=== PATIENT | female | born 1975 | race Two or more races ===

== ENCOUNTER 2024-06-03 08:37 | Outpatient (CLI) | payer OTHER ==
[2024-06-03 09:27] LABS: HEMATOCRIT 36.7 % (36.0-45.00); HEMOGLOBIN 12.1 g/dL (12.0-15.00); MEAN CELL VOLUME 79.2 fL (80.00-100.00); MEAN CORPUSCULAR HEMOGLOBIN 26.1 pg (27.00-32.0); PLATELET COUNT 253 K/uL (150-450); RED BLOOD COUNT 4.63 M/uL (4.00-6.00); RED CELL DISTRIBUTION WIDTH 14.4 % (11.5-14.5)
[2024-06-03 09:36] LABS: PH,URINE 5.5 (5.0-8.0); URINE APPEARANCE Clear; URINE BILIRRUBIN Negative (NEGATIVE); URINE BLOOD Negative; URINE COLOR Yellow; URINE GLUCOSE Negative (NEGATIVE); URINE KETONE Negative (NEGATIVE); URINE LEUKOCYTE Negative; URINE NITRATE Negative; URINE PROTEIN Negative (NEGATIVE)
[2024-06-03 09:40] LABS: URINE BACTERIA 318.7 uL (0.0-1933); URINE EPITHELIAL CELLS 18.3 uL (0.0-38.8); URINE RBC 9.7 uL (0.0-20.8); URINE WBC 3.8 uL (0.0-23.2)
[2024-06-03 10:09] LABS: ALBUMIN 3.7 gm/dL (3.4-5.0); BILIRUBIN TOTAL 0.43 mg/dL (0.3-1.2); CALCIUM 8.8 mg/dL (8.5-10.1); CHOL HDL RATIO 4.1 (0-5.0); CREATININE SERUM 0.76 mg/dL (0.55-1.02); FERRITIN 179.5 NG/ML (8-252); GFR 80.88; GLOBULINA 3.7 G/DL (2.4-3.5); POTASSIUM 4.45 mEq/L (3.5-5.1); T4 TOTAL 8.06 UG/DL (4.8-13.9); TOTAL PROTEIN 7.4 gm/dL (6.4-8.2); TSH 0.921 uIU/mL (0.358-3.74)
[2024-06-03 11:34] LABS: FOLIC ACID 18.48 ng/ml (4.78-20); T3 TOTAL 1.04 ng/ml (0.846-2.02); VITAMIN D3 25 HYDROXY 24.48 ng/ml (30-120)
== END 2024-06-03 08:38 | disposition home or self-care (01) ==
LOC: LAB 08:37
PROVIDERS: ATTEND Surgery
DX: N39.0 Urinary tract infection, site not specified (principal); D46.4 Refractory anemia, unspecified; E11.9 Type 2 diabetes mellitus without complications; E03.9 Hypothyroidism, unspecified; E55.9 Vitamin D deficiency, unspecified; D51.9 Vitamin B12 deficiency anemia, unspecified; B96.81 Helicobacter pylori [H. pylori] as the cause of diseases classified elsewhere; G47.33 Obstructive sleep apnea (adult) (pediatric); R06.00 Dyspnea, unspecified

== ENCOUNTER 2024-06-15 08:38 | Outpatient (CLI) | payer OTHER | END 2024-06-15 08:46 | disposition home or self-care (01) | LOC: LAB 08:38 | PROVIDERS: ATTEND Surgery | DX: N39.0 Urinary tract infection, site not specified (principal); D64.9 Anemia, unspecified; E11.9 Type 2 diabetes mellitus without complications; E03.9 Hypothyroidism, unspecified; E54 Ascorbic acid deficiency; E55.9 Vitamin D deficiency, unspecified; D51.9 Vitamin B12 deficiency anemia, unspecified; B96.81 Helicobacter pylori [H. pylori] as the cause of diseases classified elsewhere ==

== ENCOUNTER 2024-08-14 09:36 | Outpatient (CLI) | payer OTHER ==
[2024-08-14 10:14] LABS: HEMATOCRIT 36.9 % (36.0-45.00); HEMOGLOBIN 12.4 g/dL (12.0-15.00); MEAN CELL VOLUME 78.1 fL (80.00-100.00); MEAN CORPUSCULAR HEMOGLOBIN 26.2 pg (27.00-32.0); MEAN CORPUSCULAR HGB CONC 33.5 g/dl (32.0-36.0); PLATELET COUNT 270 K/uL (150-450); RED BLOOD COUNT 4.73 M/uL (4.00-6.00); RED CELL DISTRIBUTION WIDTH 14.7 % (11.5-14.5)
[2024-08-14 10:42] LABS: INR 1.08; PARTIAL THROMBOPLASTIN TIME 30.2 SECONDS (22.0-34.0); PROTHROMBIN TIME 11.7 SECONDS (9.0-11.5)
[2024-08-14 11:00] LABS: PH,URINE 5.5 (5.0-8.0); URINE APPEARANCE Clear; URINE BILIRRUBIN Negative (NEGATIVE); URINE BLOOD Negative; URINE COLOR Dark Yellow; URINE GLUCOSE Negative (NEGATIVE); URINE KETONE 15 (NEGATIVE); URINE LEUKOCYTE Negative; URINE NITRATE Negative; URINE PROTEIN Negative (NEGATIVE); URINE UROBILINOGEN 0.2 E.U./dl
[2024-08-14 11:04] LABS: URINE BACTERIA 414.5 uL (0.0-1933); URINE EPITHELIAL CELLS 9.5 uL (0.0-38.8); URINE RBC 10.3 uL (0.0-20.8)
[2024-08-14 11:12] LABS: ALBUMIN 4.1 gm/dL (3.4-5.0); BILIRUBIN TOTAL 0.83 mg/dL (0.3-1.2); CALCIUM 9.4 mg/dL (8.5-10.1); CREATININE SERUM 0.83 mg/dL (0.55-1.02); GFR 73.06; GLOBULINA 3.8 G/DL (2.4-3.5); POTASSIUM 4.04 mEq/L (3.5-5.1); TOTAL PROTEIN 7.9 gm/dL (6.4-8.2); TSH 0.899 uIU/mL (0.358-3.74)
[2024-08-15 06:05] LABS: hav igm Negative (Negative); hcv Non Reactive (Non Reactive); hep b c Negative (Negative); hep b s ag Negative (Negative)
== END 2024-08-14 09:37 | disposition home or self-care (01) ==
LOC: LAB 09:36
PROVIDERS: ATTEND Surgery
DX: D46.4 Refractory anemia, unspecified (principal); E11.9 Type 2 diabetes mellitus without complications; E03.9 Hypothyroidism, unspecified; E54 Ascorbic acid deficiency; E55.9 Vitamin D deficiency, unspecified; D51.9 Vitamin B12 deficiency anemia, unspecified; R19.5 Other fecal abnormalities; Z11.59 Encounter for screening for other viral diseases; B19.9 Unspecified viral hepatitis without hepatic coma; R82.90 Unspecified abnormal findings in urine

== ENCOUNTER 2024-09-30 10:37 | Outpatient (CLI) | payer OTHER ==
[2024-09-30 12:23] LABS: HEMATOCRIT 37.8 % (36.0-45.00); HEMOGLOBIN 12.2 g/dL (12.0-15.00); MEAN CELL VOLUME 79.1 fL (80.00-100.00); MEAN CORPUSCULAR HEMOGLOBIN 25.6 pg (27.00-32.0); MEAN CORPUSCULAR HGB CONC 32.4 g/dl (32.0-36.0); PLATELET COUNT 248 K/uL (150-450); RED BLOOD COUNT 4.78 M/uL (4.00-6.00); RED CELL DISTRIBUTION WIDTH 14.5 % (11.5-14.5)
[2024-09-30 12:48] LABS: INR 1.03; PARTIAL THROMBOPLASTIN TIME 29.6 SECONDS (22.0-34.0); PH,URINE 5.5 (5.0-8.0); PROTHROMBIN TIME 11.2 SECONDS (9.0-11.5); URINE APPEARANCE Clear; URINE BILIRRUBIN Negative (NEGATIVE); URINE BLOOD Negative; URINE COLOR Yellow; URINE GLUCOSE Negative (NEGATIVE); URINE KETONE 15 (NEGATIVE); URINE LEUKOCYTE Negative; URINE NITRATE Negative; URINE PROTEIN Negative (NEGATIVE); URINE UROBILINOGEN 0.2 E.U./dl
[2024-09-30 12:57] LABS: URINE BACTERIA 741.6 uL (0.0-1933); URINE EPITHELIAL CELLS 27.6 uL (0.0-38.8); URINE RBC 9.5 uL (0.0-20.8); URINE WBC 5.8 uL (0.0-23.2)
[2024-09-30 12:58] LABS: URINE CAST 0.29 uL (0.0-1.40)
[2024-09-30 13:54] LABS: ALBUMIN 3.8 gm/dL (3.4-5.0); BILIRUBIN TOTAL 0.77 mg/dL (0.3-1.2); CALCIUM 9.1 mg/dL (8.5-10.1); CREATININE SERUM 0.82 mg/dL (0.55-1.02); GFR 74.09; GLOBULINA 3.7 G/DL (2.4-3.5); POTASSIUM 4.25 mEq/L (3.5-5.1); TOTAL PROTEIN 7.5 gm/dL (6.4-8.2); TSH 1.49 uIU/mL (0.358-3.74)
== END 2024-09-30 10:41 | disposition home or self-care (01) ==
LOC: LAB 10:37
PROVIDERS: ATTEND Surgery
DX: N39.0 Urinary tract infection, site not specified (principal); D64.9 Anemia, unspecified; E11.9 Type 2 diabetes mellitus without complications; E03.9 Hypothyroidism, unspecified; E54 Ascorbic acid deficiency; E55.9 Vitamin D deficiency, unspecified; D51.9 Vitamin B12 deficiency anemia, unspecified; R19.5 Other fecal abnormalities; Z11.59 Encounter for screening for other viral diseases

== ENCOUNTER 2024-11-30 08:42 | Outpatient (CLI) | payer OTHER ==
[2024-11-30 10:46] LABS: HEMATOCRIT 33.3 % (36.0-45.00); HEMOGLOBIN 10.8 g/dL (12.0-15.00); MEAN CELL VOLUME 77.5 fL (80.00-100.00); MEAN CORPUSCULAR HEMOGLOBIN 25.2 pg (27.00-32.0); MEAN CORPUSCULAR HGB CONC 32.4 g/dl (32.0-36.0); PLATELET COUNT 222 K/uL (150-450); RED CELL DISTRIBUTION WIDTH 16.9 % (11.5-14.5)
[2024-11-30 11:21] LABS: ALBUMIN 3.8 gm/dL (3.4-5.0); BILIRUBIN TOTAL 0.97 mg/dL (0.3-1.2); CALCIUM 9.2 mg/dL (8.5-10.1); CHOL HDL RATIO 3.6 (0-5.0); CREATININE SERUM 0.68 mg/dL (0.55-1.02); GFR 91.96; GLOBULINA 3.5 G/DL (2.4-3.5); POTASSIUM 4.03 mEq/L (3.5-5.1); T4 TOTAL 8.01 UG/DL (4.8-13.9); TOTAL PROTEIN 7.3 gm/dL (6.4-8.2); TSH 1.72 uIU/mL (0.358-3.74)
[2024-12-02 10:55] LABS: FOLIC ACID 12.38 ng/ml (4.78-20); T3 TOTAL 0.936 ng/ml (0.846-2.02); VITAMIN D3 25 HYDROXY 26.49 ng/ml (30-120)
== END 2024-11-30 08:48 | disposition home or self-care (01) ==
LOC: LAB 08:42
PROVIDERS: ATTEND Surgery
DX: D46.4 Refractory anemia, unspecified (principal); E11.9 Type 2 diabetes mellitus without complications; E03.9 Hypothyroidism, unspecified; E54 Ascorbic acid deficiency; E55.9 Vitamin D deficiency, unspecified; D51.9 Vitamin B12 deficiency anemia, unspecified; R19.5 Other fecal abnormalities; Z11.59 Encounter for screening for other viral diseases

== ENCOUNTER 2025-03-01 09:15 | Outpatient (CLI) | payer OTHER ==
[2025-03-01 10:24] LABS: BASO % 0.3 % (0.1-1.2); EOS % 1.7 % (0.7-7.0); HEMATOCRIT 38.5 % (34.1-44.9); HEMOGLOBIN 11.8 g/dL (11.2-15.7); LYMPH # 1.84 (1.18-3.74); MEAN CORPUSCULAR HEMOGLOBIN 24.1 pg (25.6-32.2); MONO # 0.31 (0.24-0.82); MONO % 5.4 % (4.7-12.5); NEUT # 3.47 (1.56-6.13); NEUT % 60.4 % (34.0-71.1); PLATELET COUNT 253 K/uL (163-369); RED BLOOD COUNT 4.89 M/uL (3.93-5.22); RED CELL DISTRIBUTION WIDTH 15.8 % (11.6-14.4)
[2025-03-01 10:58] LABS: BILIRUBIN TOTAL 0.73 mg/dL (0.3-1.2); CALCIUM 9.6 mg/dL (8.5-10.1); CHOL HDL RATIO 3.6 (0-5.0); CREATININE SERUM 0.69 mg/dL (0.55-1.02); GFR 90.43; GLOBULINA 3.7 G/DL (2.4-3.5); POTASSIUM 4.66 mEq/L (3.5-5.1); T4 TOTAL 8.86 UG/DL (4.8-13.9); TOTAL PROTEIN 7.7 gm/dL (6.4-8.2); TSH 0.918 uIU/mL (0.358-3.74)
[2025-03-03 09:59] LABS: FOLIC ACID 13.37 ng/ml (4.78-20); T3 TOTAL 1.03 ng/ml (0.846-2.02); VITAMIN D3 25 HYDROXY 35.24 ng/ml (30-120)
== END 2025-03-01 09:16 | disposition home or self-care (01) ==
LOC: LAB 09:15
PROVIDERS: ATTEND Surgery
DX: D46.4 Refractory anemia, unspecified (principal); E11.9 Type 2 diabetes mellitus without complications; E03.9 Hypothyroidism, unspecified; E54 Ascorbic acid deficiency; E55.9 Vitamin D deficiency, unspecified; E51.9 Thiamine deficiency, unspecified; R19.5 Other fecal abnormalities; Z11.59 Encounter for screening for other viral diseases

== ENCOUNTER 2025-05-24 10:09 | Outpatient (CLI) | payer OTHER ==
[2025-05-24 10:57] LABS: BASO % 0.4 % (0.1-1.2); EOS # 0.10 (0.04-0.54); EOS % 1.8 % (0.7-7.0); LYMPH # 2.12 (1.18-3.74); LYMPH % 38.9 % (19.3-53.1); MEAN PLATELET VOLUME 10.20 fl (9.4-12.4); MONO # 0.35 (0.24-0.82); MONO % 6.4 % (4.7-12.5); NEUT # 2.84 (1.56-6.13); NEUT % 52.1 % (34.0-71.1); RED CELL DISTRIBUTION WIDTH 13.7 % (11.6-14.4)
[2025-05-24 11:28] LABS: ALT/SGPT 24.0 U/L (12-78); AST/SGOT 15.0 U/L (15-37); BILIRUBIN TOTAL 0.76 mg/dL (0.3-1.2); BUN CREA RATIO 20.0 (7.0-25.0); CHOL HDL RATIO 3.3 (0-5.0); CREATININE SERUM 0.76 mg/dL (0.55-1.02); FE 85.0 ug/dl (50-170); GFR 80.55; GLOBULINA 4.0 G/DL (2.4-3.5); GLUCOSE FASTING 84.0 mg/dL (65-100); HDL 49.0 mg/dl (40-60); LDL 92.0 mg/dl (0-130); OSMOLALITY SERUM 285.0 MOSM/KG (275-295); T4 TOTAL 8.97 UG/DL (4.8-13.9); TSH 1.05 uIU/mL (0.358-3.74); VLDL 20.0 (0-39)
[2025-05-26 10:11] LABS: FOLIC ACID 12.28 ng/ml (4.78-20); T3 TOTAL 0.974 ng/ml (0.846-2.02); VITAMIN D3 25 HYDROXY 31.37 ng/ml (30-120)
== END 2025-05-24 10:15 | disposition home or self-care (01) ==
LOC: LAB 10:09
PROVIDERS: ATTEND Surgery
DX: N39.0 Urinary tract infection, site not specified (principal); D46.4 Refractory anemia, unspecified; E11.9 Type 2 diabetes mellitus without complications; E03.9 Hypothyroidism, unspecified; E54 Ascorbic acid deficiency; E55.9 Vitamin D deficiency, unspecified; D51.9 Vitamin B12 deficiency anemia, unspecified; R19.5 Other fecal abnormalities; Z11.59 Encounter for screening for other viral diseases

== ENCOUNTER 2025-09-18 18:10 | Inpatient (IN) | payer OTHER ==
[~2025-09-18] VITALS: Ht 152.4 cm; Wt 60.8 kg
[2025-09-18] MEDS ORDERED: MULTI VITAMIN1 EACH (18:19)
[2025-09-18] MEDS ORDERED: KETOROLAC TROMETHAMINE 30 MG VIAL ONE ×2 (18:54→23:59)
[2025-09-18] MEDS ORDERED: CEFTRIAXONE SODIUM 1,000 MG VIAL ONE (18:54)
[2025-09-18] MEDS ORDERED: FAMOTIDINE/PF 20 MG/2 ML VIAL ONE (18:54)
[2025-09-18] MEDS ORDERED: ONDANSETRON HCL 2 MG/ML VIAL IV ONE (19:00)
[2025-09-18] MEDS ORDERED: METHYLPREDNISOLONE SOD SUCC 125 MG VIAL IV ONE (19:00)
[2025-09-18] MEDS ORDERED: CEFTRIAXONE SODIUM 1,000 MG VIAL IV ONE (19:00)
[2025-09-18] MEDS ORDERED: DIPHENHYDRAMINE HCL 50 MG/ML VIAL 1ML IV ONE (19:00)
[2025-09-18] MEDS ORDERED: 0.9 % SODIUM CHLORIDE 1,000 ML IV SCH (19:00)
[2025-09-18] MEDS ORDERED: FAMOTIDINE/PF 20 MG/2 ML VIAL IV ONE (19:00)
[2025-09-18] MEDS ORDERED: KETOROLAC TROMETHAMINE 30 MG VIAL IV ONE ×2 (19:00→23:30)
[2025-09-18] MEDS ORDERED: DIPHENHYDRAMINE HCL 50 MG/ML VIAL 1ML ONE (19:17)
[2025-09-18] MEDS ORDERED: ONDANSETRON HCL 2 MG/ML VIAL ONE (19:17)
[2025-09-18] MEDS ORDERED: METHYLPREDNISOLONE SOD SUCC 125 MG VIAL ONE (19:17)
[2025-09-18 19:23] LABS: BASO % 0.3 % (0.1-1.2); EOS # 0.00 (0.04-0.54); EOS % 0.0 % (0.7-7.0); LYMPH # 1.59 (1.18-3.74); LYMPH % 11.2 % (19.3-53.1); MEAN PLATELET VOLUME 10.20 fl (9.4-12.4); MONO # 0.63 (0.24-0.82); MONO % 4.4 % (4.7-12.5); NEUT # 11.91 (1.56-6.13); NEUT % 83.8 % (34.0-71.1); RED CELL DISTRIBUTION WIDTH 13.3 % (11.6-14.4)
[2025-09-18 19:25] LABS: ERYTHROCYTE SEDIMENTATION RATE 18 mm/hr (0-20)
[2025-09-18 20:25] LABS: ALT/SGPT 23.0 U/L (12-78); AST/SGOT 18.0 U/L (15-37); BILIRUBIN TOTAL 0.44 mg/dL (0.3-1.2); BUN CREA RATIO 21.0 (7.0-25.0); CREATININE SERUM 0.75 mg/dL (0.55-1.02); GFR 81.79; GLOBULINA 4.1 G/DL (2.4-3.5); GLUCOSE FASTING 104.0 mg/dL (65-100); OSMOLALITY SERUM 283.0 MOSM/KG (275-295)
[2025-09-18 22:02] LABS: COVID-19 AG NEGATIVE (NEGATIVE)
[2025-09-18] MEDS ORDERED: PIPERACILLIN/TAZOBACTAM SODIUM 3.375 GM VIAL IV ONE ×2 (23:30→23:59)
[2025-09-18 23:44] LABS: URINE APPEARANCE Clear; URINE BILIRRUBIN Negative (NEGATIVE); URINE BLOOD Negative; URINE COLOR Yellow; URINE GLUCOSE Negative (NEGATIVE); URINE LEUKOCYTE Negative; URINE NITRATE Negative; URINE PROTEIN Negative (NEGATIVE); URINE UROBILINOGEN 1.0 E.U./dl
[2025-09-18 23:49] LABS: URINE BACTERIA 670.3 uL (0.0-1933); URINE EPITHELIAL CELLS 18.3 uL (0.0-38.8); URINE RBC 16.2 uL (0.0-20.8); URINE WBC 5.2 uL (0.0-23.2)
[2025-09-19 00:01] LABS: URINE CAST 0.00 uL (0.0-1.40); URINE KETONE 40 (NEGATIVE)
[2025-09-19] MEDS ORDERED: 0.9 % SODIUM CHLORIDE 1,000 ML IV SCH (00:30)
[2025-09-19] MEDS ORDERED: FAMOTIDINE/PF 20 MG in 0.9 % SODIUM CHLORIDE 8 ML IV PUSH SCH (00:33)
[2025-09-19 00:41] LABS: INR 1.09
[2025-09-19] MEDS ORDERED: ACETAMINOPHEN 500 MG GEL..CAP PO PRN (00:45)
[2025-09-19] MEDS ORDERED: MORPHINE SULFATE 4 MG/ML CARTRIDGE IV PRN (00:45)
[2025-09-19] MEDS ORDERED: ONDANSETRON HCL 4 MG in 0.9 % SODIUM CHLORIDE 50 ML IV PRN (00:45)
[2025-09-19] MEDS ORDERED: ENALAPRILAT DIHYDRATE 1.25 MG/ML VIAL IV PRN (00:45)
[2025-09-19] MEDS ORDERED: PIPERACILLIN/TAZOBACTAM SODIUM 3.375 GM in DEXTROSE 5 % IN WATER 100 ML IV SCH (06:00)
[2025-09-19 09:10] VITALS: BP 125/78; O2SAT 100
[2025-09-19] MEDS ORDERED: DIATRIZOATE MEGLUMINE, SODIUM 30 ML BOTTLE PO NR (13:50)
[2025-09-19 18:28] VITALS: BP 128/75; O2SAT 100
[2025-09-20 05:52] VITALS: BP 112/66; O2SAT 100
[2025-09-20 07:37] LABS: BASO % 0.2 % (0.1-1.2); EOS # 0.01 (0.04-0.54); EOS % 0.1 % (0.7-7.0); LYMPH # 2.29 (1.18-3.74); LYMPH % 17.8 % (19.3-53.1); MEAN PLATELET VOLUME 11.20 fl (9.4-12.4); MONO # 0.57 (0.24-0.82); MONO % 4.4 % (4.7-12.5); NEUT # 9.93 (1.56-6.13); NEUT % 77.2 % (34.0-71.1); RED CELL DISTRIBUTION WIDTH 13.5 % (11.6-14.4)
[2025-09-20 08:13] LABS: ALT/SGPT 20.0 U/L (12-78); AST/SGOT 15.0 U/L (15-37); BILIRUBIN TOTAL 0.91 mg/dL (0.3-1.2); BUN CREA RATIO 19.0 (7.0-25.0); CREATININE SERUM 0.83 mg/dL (0.55-1.02); GFR 72.77; GLOBULINA 3.3 G/DL (2.4-3.5); GLUCOSE FASTING 80.0 mg/dL (65-100); OSMOLALITY SERUM 287.0 MOSM/KG (275-295)
[2025-09-20 11:33] VITALS: BP 121/68; O2SAT 99
[2025-09-20] MEDS ORDERED: CHLORHEXIDINE GLUCONATE 120 ML BOTTLE TOP ONE (17:19)
[2025-09-20] MEDS ORDERED: PIPERACILLIN/TAZOBACTAM SODIUM 3.375 GM VIAL IV ONE (17:56)
[2025-09-20] MEDS ORDERED: SUGAMMADEX SODIUM 200 MG/2 ML VIAL IV ONE (18:13)
[2025-09-20] MEDS ORDERED: FAMOTIDINE/PF 20 MG/2 ML VIAL ONE ×2 (20:09→20:36)
[2025-09-20] MEDS ORDERED: FAMOTIDINE/PF 20 MG in 0.9 % SODIUM CHLORIDE 8 ML IV PUSH SCH (21:00)
[2025-09-20 22:49] VITALS: BP 113/79
[2025-09-21 03:04] VITALS: BP 109/62; O2SAT 99
[2025-09-21 09:44] VITALS: BP 138/72; O2SAT 98
[2025-09-21 20:04] VITALS: BP 167/83
[2025-09-22 03:04] VITALS: BP 111/67; O2SAT 90
[2025-09-22 19:26] VITALS: BP 130/81; O2SAT 98
== END 2025-09-22 19:34 | disposition home or self-care (01) | DRG 399 ==
LOC: ER 18:11 → MEDJ 09-19 00:36
PROVIDERS: Internal Medicine Infectious Disease; Student in an Organized Health Care Education/Training Program; Surgery; ADMIT Internal Medicine; ATTEND Internal Medicine
PROC: BW21YZZ Computerized Tomography (CT Scan) of Abdomen and Pelvis using Other Contrast (ICD-10-PCS; 2025-09-18)
PROC: 0DTJ0ZZ Resection of Appendix, Open Approach (ICD-10-PCS; principal; 2025-09-20 18:45)
DX: K35.891 Other acute appendicitis without perforation, with gangrene (principal); D72.828 Other elevated white blood cell count